=== PATIENT | female | born 1995 | race Caucasian/White ===

== ENCOUNTER 2022-06-21 09:43 | Emergency (ER) | payer BC ==
[~2022-06-21] VITALS: Ht 162.6 cm; Wt 86.4 kg
[2022-06-21 10:07] VITALS: TEMP 98.5
[2022-06-21 12:01] LABS: COLLECTION METHOD CLEAN CATCH
[2022-06-21 12:27] LABS: MUCOUS Present (NOT PRESENT); URINE BACTERIA None Seen /hpf (NONE SEEN); URINE RBC 0-2 /hpf (0-2)
[2022-06-21 12:28] LABS: URINE COLOR Yellow (YELLOW)
[2022-06-21 12:29] LABS: PH 6 (5-8); URINE APPEARANCE Clear (CLEAR/HAZY); URINE BLOOD Negative (NEGATIVE); URINE GLUCOSE Negative (NEGATIVE); URINE KETONE TRACE (NEGATIVE); URINE NITRATE Negative (NEGATIVE); URINE PROTEIN(semi-quant) 1+ (NEGATIVE); URINE UROBILINOGEN 0.2 (NEGATIVE)
[2022-06-21 12:38] VITALS: BP 121/85; PULSE 98
[2022-06-21] MEDS ORDERED: TESSALON P100 MG/CAP PO (12:38)
[2022-06-21] MEDS ORDERED: REGLAN 10MG10 MG/TAB PO (12:38)
== END 2022-06-21 12:51 | disposition home or self-care (01) ==
LOC: COL.ER 09:43
PROVIDERS: Emergency Medicine
DX: U07.1 COVID-19 (principal); R11.2 Nausea with vomiting, unspecified; F41.9 Anxiety disorder, unspecified; Z91.040 Latex allergy status
CPT/HCPCS: J1885; J2765; J7120